=== PATIENT | male | born 1995 | race African-American/Black ===

== ENCOUNTER 2017-07-12 12:51 | Inpatient (IN) | payer OTHER ==
[~2017-07-12] VITALS: Ht 172.7 cm; Wt 84.0 kg
[2017-07-12] MEDS ORDERED: ONDANSETRON INJ 2 MG/ML 2 ML VIAL IV STA (14:24)
[2017-07-12] MEDS ORDERED: MoRPHine SULFATE 4 MG/ML 1 ML CARP\\VIAL IV STA ×2 (14:24→16:23)
--- NOTE | 2017-07-12 14:33 | EMERGENCY ROOM VISIT NOTE ---
History First contact with patient: 14:16 Chief Complaint: ABDOMINAL PAIN Stated Complaint: SEVERE ABD PAIN Nursing Triage Summary: Patient c/o of RLQ abdominal pain and nausea since last night. Patient states "I am concerned it might be my appendix. My dad's appendix almost rupture." History of Present Illness The patient is a 22 year old male who presents to the Emergency Room via private vehicle with complaints of "severe abdominal pain". The patient states that yesterday evening he developed generalized right lower quadrant abdominal pain, and nausea. He notes that he woke up and now it is persistent and severe. He states that he is tried eating food but feels very nauseous. He is concerned because his father's appendix almost ruptured, and his pain is in the same area. He notes at this time nausea, but no fevers, chills or vomiting. His bowel movements have been normal. He notes that he does have blood in the urine, but this is normal for him as he does have Alport syndrome. Review of Systems A complete 10-point Review of Systems was discussed with the patient, with pertinent positives and negatives listed in the History of Present Illness. All remaining Review of Systems questions can be considered negative unless otherwise specified. Past Medical/Surgical History Medical Problems: (1) Acute appendicitis Alport syndrome. Family History Appendectomy Social History Smoking Status: Never Smoker [employer]. Current/Historical Medications Scheduled Amphetamine-Dextroamphetamine 30MG (Adderall 30MG), 1 TAB PO BID Physical Exam Vital Signs Date Time Temp Pulse Resp B/P (MAP) Pulse Ox O2 Delivery O2 Flow Rate FiO2 07/12/17 21:30 36.8 64 14 122/70 (87) 96 Room Air 07/12/17 21:00 99 Room Air 07/12/17 21:00 37.3 62 14 135/72 99 Room Air 07/12/17 20:35 68 20 126/60 97 Room Air 07/12/17 20:25 58 20 119/63 100 Oxymask 10 07/12/17 20:15 54 20 122/64 100 Oxymask 10 07/12/17 20:08 37.5 57 20 121/76 100 Oxymask 10 07/12/17 16:50 72 16 132/75 100 Room Air 07/12/17 14:50 37.3 80 18 139/80 100 Room Air 10/4/17 12:54 36.7 70 18 119/77 100 Room Air Physical Exam VITAL SIGNS - Vital signs and nursing notes were reviewed.Stable. GENERAL -22-year-old male appearing his stated age who is in no acute distress. Communicates well with provider and answers questions appropriately. SKIN - Without rashes. No petechial rashes. HEAD - NC/AT. EYES - Sclera anicteric. EARS - No deformities of external structures noted on gross examination bilaterally. NOSE - Midline and without cyanosis. No epistaxis or purulent drainage noted. Septum midline without deviation or septal hematoma noted. MOUTH/OROPHARYNX - Without perioral cyanosis. NECK - Neck with FROM. LUNGS - Chest wall symmetric without accessory muscle use, intercostals retractions, or central cyanosis. Normal vesicular breath sounds CTA B/L. No wheezes, rales, or rhonchi appreciated. CARDIAC - RRR with S1/S2. No murmur, rubs, or gallops appreciated. ABDOMEN - Abdominal contour normal without pulsations or visible masses. BS normoactive all four quadrants. Exquisite right lower quadrant tenderness. No palpable masses, hepatosplenomegaly, or ascites noted. Medical Decision & Procedures ER Provider Diagnostic Interpretation: [~ rep ct add3]] ABD/PELVIS IV AND ORAL CONT HISTORY: 22 years-old Male RLQ abdominal pain acute right lower quadrant abdominal pain. COMPARISON: None available TECHNIQUE: Multiple axial CT images of the abdomen and pelvis were obtained following the intravenous administration of moderate 16 mL Optiray 320. Oral contrast was also used. A dose lowering technique was used consistent with the principals of ALARA. FINDINGS: The bilateral lung bases are generally clear. There is minimal bibasilar bronchial wall thickening which may reflect bronchitis. No pneumoperitoneum identified. The imaged inferior cardiac chambers are unremarkable. The liver, spleen, pancreas and adrenal glands are within normal limits. The kidneys, ureters, urinary bladder and prostate are unremarkable. Abdominal aorta is normal in course and caliber. No bulky adenopathy. Oral contrast is seen within a mildly distended distal esophagus compatible with reflux. No bowel obstruction. Appendix is fluid-filled and dilated, 1.2 cm with mucosal hyperemia, surrounding inflammatory stranding and reactive free fluid. Free fluid also tracks into the dependent pelvis. No abscess or pneumoperitoneum. Moderate degree of symmetric muscular atrophic changes are seen involving the abdominal wall, paraspinal, gluteal, psoas and iliopsoas musculature as well as the musculature about the bilateral proximal thighs. The bones appear intact. IMPRESSION: 1. Findings compatible with acute uncomplicated appendicitis. 2. Moderate degree of symmetric muscular atrophy involving the abdominal wall, paraspinal, gluteal, psoas and iliopsoas musculature as well as the musculature about the bilateral proximal thighs is nonspecific and requires clinical correlation. The above report was generated using voice recognition software. It may contain grammatical, syntax or spelling errors. Electronically signed by: Cristofer Cabral M.D. 07/12/2017 5:04 PM Dictated Date/Time: 07/12/2017 4:55 PM Laboratory Results 07/12/17 14:20 Red Blood Count 4.96, Mean Corpuscular Volume 87.3, Mean Corpuscular Hemoglobin 30.0, Mean Corpuscular Hemoglobin Concent 34.4, Mean Platelet Volume 9.5, Neutrophils (%) (Auto) 88.5, Lymphocytes (%) (Auto) 4.4, Monocytes (%) (Auto) 6.2, Eosinophils (%) (Auto) 0.6, Basophils (%) (Auto) 0.1, Neutrophils # (Auto) 14.12, Lymphocytes # (Auto) 0.70, Monocytes # (Auto) 0.98, Eosinophils # (Auto) 0.09, Basophils # (Auto) 0.01 07/12/17 14:20 Test 07/12/17 14:15 07/12/17 14:20 Urine Color ORANGE Urine Appearance CLOUDY (CLEAR) Urine pH 7.5 (4.5-7.5) Urine Specific [place] 1.023 (1.000-1.030) Urine Protein 2+ (NEG) Urine Glucose (UA) NEG (NEG) Urine Ketones 1+ (NEG) Urine Occult Blood 3+ (NEG) Urine Nitrite NEG (NEG) Urine Bilirubin NEG (NEG) Urine Urobilinogen NEG (NEG) Urine Leukocyte Esterase TRACE (NEG) Urine WBC (Auto) 5-10 /hpf (0-5) Urine RBC (Auto) >30 /hpf (0-4) Urine Hyaline Casts (Auto) 1-5 /lpf (0-5) Urine Epithelial Cells (Auto) >30 /lpf (0-5) Urine Bacteria (Auto) NEG (NEG) Urine Renal Epithelial Cells /lpf (0-5) Urine Pathogenic Casts /lpf (0) White Blood Count 15.93 K/uL (4.8-10.8) Red Blood Count 4.96 M/uL (4.7-6.1) Hemoglobin 14.9 g/dL (14.0-18.0) Hematocrit 43.3 % (42-52) Mean Corpuscular Volume 87.3 fL (80-100) Mean Corpuscular Hemoglobin 30.0 pg (25-34) Mean Corpuscular Hemoglobin Concent 34.4 g/dl (32-36) Platelet Count 237 K/uL (130-400) Mean Platelet Volume 9.5 fL (7.4-10.4) Neutrophils (%) (Auto) 88.5 % Lymphocytes (%) (Auto) 4.4 % Monocytes (%) (Auto) 6.2 % Eosinophils (%) (Auto) 0.6 % Basophils (%) (Auto) 0.1 % Neutrophils # (Auto) 14.12 K/uL (1.4-6.5) Lymphocytes # (Auto) 0.70 K/uL (1.2-3.4) Monocytes # (Auto) 0.98 K/uL (0.11-0.59) Eosinophils # (Auto) 0.09 K/uL (0-0.5) Basophils # (Auto) 0.01 K/uL (0-0.2) RDW Standard Deviation 42.1 fL (36.4-46.3) RDW Coefficient of Variation 13.2 % (11.5-14.5) Immature Granulocyte % (Auto) 0.2 % Immature Granulocyte # (Auto) 0.03 K/uL (0.00-0.02) Anion Gap 9.0 mmol/L (3-11) Est Creatinine Clear Calc Drug Dose 200.6 ml/min Estimated GFR () > 150.0 Estimated GFR (Non- 142.8 BUN/Creatinine Ratio 21.7 (10-20) Calcium Level 8.6 mg/dl (8.5-10.1) Total Bilirubin 0.3 mg/dl (0.2-1) Aspartate Amino Transf (AST/SGOT) 26 U/L (15-37) Alanine Aminotransferase (ALT/SGPT) 48 U/L (12-78) Alkaline Phosphatase 74 U/L (45-117) Total Protein 7.2 gm/dl (6.4-8.2) Albumin 3.8 gm/dl (3.4-5.0) Globulin 3.4 gm/dl (2.5-4.0) Albumin/Globulin Ratio 1.1 (0.9-2) Lipase 79 U/L (73-393) Medications Administered Medications (Trade) Dose Ordered Sig/Brandee Route Start Time Stop Time Status Last Admin Dose Admin Morphine Sulfate (MoRPHine SULFATE INJ) 4 mg NOW STAT IV 07/12/17 14:24 07/12/17 14:25 DC 07/12/17 14:44 4 MG Ondansetron HCl (Zofran Inj) 4 mg NOW STAT IV 07/12/17 14:24 07/12/17 14:25 DC 07/12/17 14:44 4 MG Sodium Chloride 1,000 ml @ 999 mls/hr Q1H1M STAT IV 07/12/17 14:43 07/12/17 15:43 DC 07/12/17 14:45 999 MLS/HR Morphine Sulfate (MoRPHine SULFATE INJ) 4 mg NOW STAT IV 07/12/17 16:23 07/12/17 16:24 DC 07/12/17 16:35 4 MG Bupivacaine HCl (Marcaine 0.5% MPF Inj) 30 ml STK-MED ONCE .ROUTE 07/12/17 17:55 07/12/17 17:56 DC 07/12/17 19:50 10 ML Cefoxitin Sodium 2000 mg/Dextrose 60 ml @ 120 mls/hr 1830 IV 07/12/17 18:30 07/12/17 18:59 DC 07/12/17 18:15 120 MLS/HR Fentanyl Citrate (Fentanyl Inj) 50 mcg Q5M PRN IV 07/12/17 18:30 07/12/17 23:30 07/12/17 20:31 50 MCG Medical Decision Patient was seen and evaluated as above. He presents to us today with severe right lower quadrant abdominal pain. His examination is concerning for that of appendicitis. Decision was made to obtain a CT scan of the abdomen and pelvis with IV and oral contrast. There is leukocytosis of near 16,000. No anemia. Metabolic panel was unremarkable for concerning process. No evidence of kidney or liver failure. Although the urine does show blood, I suspect this is likely secondary to his underlying Alport syndrome. Patient notes this is unchanged from previous. Case was discussed with the on-call general surgeon, Dr. Garcia. He will evaluate the patient. Patient will be taken to surgery for his appendicitis. Please refer to further documentation regarding his stay. Patient was educated upon the muscle atrophy identified on CT, and is to follow- up with his family doctor regarding such. He was given a printed copy of the scan. He was given morphine 2 for his pain and Zofran for nausea. Evaluation treatment this patient the following differential diagnoses were entertained: Appendicitis, mesenteric adenitis, epiploic appendicitis, diverticulitis, among others. Impression Primary Impression: Acute appendicitis Departure Information Dispostion Admitted as an inpatient Condition GOOD Patient Instructions My [facility]
[2017-07-12 14:36] LABS: BASO % 0.1 %; BASO ABS # 0.01 K/uL (0-0.2); COMPLETE YES; EOS % 0.6 %; HEMATOCRIT 43.3 % (42-52); IG% 0.2 %; LYMPH % 4.4 %; MEAN CELL VOLUME 87.3 fL (80-100); MEAN CORPUSCULAR HGB CONC 34.4 g/dl (32-36); MEAN PLATELET VOLUME 9.5 fL (7.4-10.4); MONO % 6.2 %; NEUT % 88.5 %; PLATELET COUNT 237 K/uL (130-400); RED BLOOD COUNT 4.96 M/uL (4.7-6.1); WHITE BLOOD COUNT 15.93 K/uL (4.8-10.8)
[2017-07-12] MEDS ORDERED: SODIUM CHLORIDE 0.9% 1000ML 1,000 ML IV STA (14:43)
[2017-07-12] MEDS ORDERED: OPTIRAY 320 IV PRN (14:45)
[2017-07-12] MEDS ORDERED: AMPH30TA2 PO (14:52)
[2017-07-12 14:55] LABS: ALT/SGPT 48 U/L (12-78); AST/SGOT 26 U/L (15-37); BLOOD UREA NITROGEN 13 mg/dl (7-18); BUN/CREATININE RATIO 21.7 (10-20); CALCIUM 8.6 mg/dl (8.5-10.1); CARBON DIOXIDE 28 mmol/L (21-32); CHLORIDE 104 mmol/L (98-107); CREATININE 0.62 mg/dl (0.60-1.40); GLUCOSE 98 mg/dl (70-99); POTASSIUM 3.5 mmol/L (3.5-5.1); SODIUM 141 mmol/L (136-145)
[2017-07-12 14:56] LABS: URINE APPEARANCE CLOUDY (CLEAR); URINE BILIRUBIN NEG (NEG); URINE COLOR ORANGE; URINE EPITHELIAL CELL AUTO >30 /lpf (0-5); URINE NITRITE NEG (NEG); URINE PH 7.5 (4.5-7.5); URINE SPECIFIC GRAVITY 1.023 (1.000-1.030); UROBILINOGEN NEG (NEG); ZZUR CULT IF INDIC CLEAN CATCH NO
[2017-07-12 14:58] LABS: ALB/GLOB RATIO 1.1 (0.9-2); ALKALINE PHOSPHATASE 74 U/L (45-117)
[2017-07-12 15:16] LABS: MANUAL MICROSCOPIC REQUIRED? NO; REVIEW REQ? YES; SULFASALICYLIC ACID POS (NEG)
--- NOTE | 2017-07-12 17:06 | DIAGNOSTIC IMAGING REPORT ---
ABD/PELVIS IV AND ORAL CONT HISTORY: 22 years-old Male RLQ abdominal pain acute right lower quadrant abdominal pain. COMPARISON: None available TECHNIQUE: Multiple axial CT images of the abdomen and pelvis were obtained following the intravenous administration of moderate 16 mL Optiray 320. Oral contrast was also used. A dose lowering technique was used consistent with the principals of NIYA. FINDINGS: The bilateral lung bases are generally clear. There is minimal bibasilar bronchial wall thickening which may reflect bronchitis. No pneumoperitoneum identified. The imaged inferior cardiac chambers are unremarkable. The liver, spleen, pancreas and adrenal glands are within normal limits. The kidneys, ureters, urinary bladder and prostate are unremarkable. Abdominal aorta is normal in course and caliber. No bulky adenopathy. Oral contrast is seen within a mildly distended distal esophagus compatible with reflux. No bowel obstruction. Appendix is fluid-filled and dilated, 1.2 cm with mucosal hyperemia, surrounding inflammatory stranding and reactive free fluid. Free fluid also tracks into the dependent pelvis. No abscess or pneumoperitoneum. Moderate degree of symmetric muscular atrophic changes are seen involving the abdominal wall, paraspinal, gluteal, psoas and iliopsoas musculature as well as the musculature about the bilateral proximal thighs. The bones appear intact. IMPRESSION: 1. Findings compatible with acute uncomplicated appendicitis. 2. Moderate degree of symmetric muscular atrophy involving the abdominal wall, paraspinal, gluteal, psoas and iliopsoas musculature as well as the musculature about the bilateral proximal thighs is nonspecific and requires clinical correlation. The above report was generated using voice recognition software. It may contain grammatical, syntax or spelling errors. Electronically signed by: Cristofer Cabral M.D. 07/12/2017 5:04 PM Dictated Date/Time: 07/12/2017 4:55 PM
[2017-07-12] MEDS ORDERED: CEFOXITIN 2000MG/60 ML D5W IV STA (17:46)
--- NOTE | 2017-07-12 17:54 | History and Physical ---
History & Physical Date Jul 12, 2017. Chief Complaint abd pain History of Present Illness The patient is a 22 year old male with complaints of abd pain , persistent w/u with CT showing evidence of acute appendicitis- no abscess elevated WBC Additional History Other: Alport syndrome, micro hematuria Allergies Coded Allergies: No Known Allergies (Unverified , 07/12/17) Home Medications Scheduled Amphetamine-Dextroamphetamine 30MG (Adderall 30MG), 1 TAB PO BID Physical Examination Skin: warm/dry Eyes: sclerae normal Head: atraumatic Neck: supple Respiratory/Chest: no respiratory distress Cardiovascular: regular rate, rhythm Abdomen / GI: + pertinent finding (abd- soft, Rt lower abd tenderness) Extremities: normal inspection Neurologic/Psych: alert Diagnosis acute appendicitis Plan of Treatment 07/12/17- for laparoscopic appendectomy, possible open operation discussed risks of bleeding, infection, bowel/ bladder injury
[2017-07-12] MEDS ORDERED: BUPIVACAINE 0.5 % 5 MG/1 ML MPF 30ML VIAL ONE (17:55)
[2017-07-12] MEDS ORDERED: FENTANYL CITRATE INJ 50 MCG/1 ML 2 ML VIAL ONE ×5 (18:16→20:24)
[2017-07-12] MEDS ORDERED: MIDAZOLAM HCL 1 MG/ML 2ML VIAL ONE (18:16)
[2017-07-12] MEDS ORDERED: HYDROmorphone INJ 1 MG/ML SYR IV PRN (18:30)
[2017-07-12] MEDS ORDERED: ATROPINE SULFATE 0.1 MG/ML 5ML SYR IV PRN (18:30)
[2017-07-12] MEDS ORDERED: CEFOXITIN IV 2,000 MG in DEXTROSE 5% 50ML 50 ML IV SCH (18:30)
[2017-07-12] MEDS ORDERED: LABETALOL HCL IV 5 MG/ML 20ML IV PRN (18:30)
[2017-07-12] MEDS ORDERED: MEPERIDINE HCL 25 MG/ML CARP IV PRN (18:30)
[2017-07-12] MEDS ORDERED: EpHEDrine SULFATE INJ 50 MG/ML AMP IV PRN (18:30)
[2017-07-12] MEDS ORDERED: ONDANSETRON INJ 2 MG/ML 2 ML VIAL IV PRN ×2 (18:30→20:15)
[2017-07-12] MEDS ORDERED: ONDANSETRON INJ 2 MG/ML 2 ML VIAL ONE (19:07)
[2017-07-12] MEDS ORDERED: PROPOFOL IV EMULSION 10 MG/ML 20 ML VIAL IV ONE (19:07)
[2017-07-12] MEDS ORDERED: LIDOCAINE HCL 2% 2 ML VIAL (20MG/ML) ONE (19:07)
[2017-07-12] MEDS ORDERED: SUCCINYLCHOLINE 100MG/5ML SYR IV ONE (19:07)
[2017-07-12] MEDS ORDERED: DEXAMETHASONE SOD INJ 4 MG/ML VIAL ONE (19:07)
[2017-07-12] MEDS ORDERED: ROCURONIUM BROMID 50MG/5ML SYR ONE (19:07)
--- NOTE | 2017-07-12 20:05 | [facility] Operative Report ---
Operative Report Operative Date Jul 12, 2017. Pre-Operative Diagnosis acute appendicitis Post-Operative Diagnosis Same, with chronic adhesions Procedure(s) Performed Laparoscopic Appendectomy of internally ruptured appendix Surgeon Dr Garcia Bmet Surgeon(s) none Estimated Blood Loss 20cc Findings gangrenous appendicitis with severe chronic adhesions Specimens a. appendix Drains # 15 Rd ÓSCAR to bulb Anesthesia gen Complication(s) None Disposition Recovery Room / PACU I attest to the content of the Intraoperative Record and any orders documented therein. Any exceptions are noted below.
[2017-07-12] MEDS ORDERED: PROMETHAZINE HCL INJ 25 MG in SODIUM CHLORIDE 0.9% 50ML 50 ML IV PRN (20:15)
[2017-07-12] MEDS ORDERED: PROMETHAZINE HCL INJ 12.5 MG in SODIUM CHLORIDE 0.9% 50ML 50 ML IV PRN (20:15)
[2017-07-12] MEDS: FENTANYL CITRATE INJ 50 MCG/1 ML 2 ML VIAL IV PRN ×2 (20:26→20:31)
--- NOTE | 2017-07-12 20:47 | Anesthesiology Progress Note ---
Anesthesia Post Op Note Date & Time Jul 12, 2017 at 20:47 Vital Signs Pain Intensity: 5 Vital Signs Past 12 Hours Date Time Temp Pulse Resp B/P (MAP) Pulse Ox O2 Delivery O2 Flow Rate FiO2 07/12/17 20:35 68 20 126/60 97 Room Air 07/12/17 20:25 58 20 119/63 100 Oxymask 10 07/12/17 20:15 54 20 122/64 100 Oxymask 10 07/12/17 20:08 37.5 57 20 121/76 100 Oxymask 10 07/12/17 16:50 72 16 132/75 100 Room Air 07/12/17 14:50 37.3 80 18 139/80 100 Room Air 07/12/17 12:54 36.7 70 18 119/77 100 Room Air Notes Mental Status: alert / awake / arousable, participated in evaluation Pt Amnestic to Procedure: Yes Nausea / Vomiting: adequately controlled Pain: adequately controlled Airway Patency, RR, SpO2: stable & adequate BP & HR: stable & adequate Hydration State: stable & adequate Anesthetic Complications: no major complications apparent
[2017-07-12 21:00] VITALS: BP 135/72; PULSE 62; TEMP 37.3; O2SAT 99; Ht 172.7 cm; Wt 84.0 kg
[2017-07-12] MEDS ORDERED: PIPERACILL/TAZOBAC IV 3.375 GM in DEXTROSE 5% 100ML 100 ML IV SCH (21:00)
[2017-07-12 21:30] VITALS: BP 122/70; PULSE 64; TEMP 36.8; O2SAT 96
[2017-07-12 22:00] VITALS: BP 125/65; PULSE 75; TEMP 37.2; O2SAT 98
[2017-07-12] MEDS ORDERED: PIPERACILL/TAZOBAC CONSULT ACTIVE PRN (22:00)
[2017-07-12] MEDS ORDERED: PIPERACILL/TAZOBAC IV 3.375 GM in DEXTROSE 5% 100ML IV ONE (22:00)
[2017-07-12] MEDS: LACTATED RINGER'S 1000ML 1,000 ML IV SCH (22:03)
[2017-07-12 23:02] VITALS: BP 128/70; PULSE 87; TEMP 37.9; O2SAT 98
[2017-07-13] VITALS (8 sets, daily range): BP systolic 119–136; BP diastolic 69–84; PULSE 65–88; TEMP 36.7–37.2; O2SAT 97–99
[2017-07-13] MEDS: MoRPHine SULFATE 4 MG/ML 1 ML CARP\\VIAL IV PRN (00:03)
--- NOTE | 2017-07-13 00:54 | OPERATIVE REPORT ---
DATE OF OPERATION: 07/12/2017 NAME OF OPERATION: Laparoscopic appendectomy. PREOPERATIVE DIAGNOSIS: Acute appendicitis. POSTOPERATIVE DIAGNOSIS: Same with severe chronic adhesions and gangrenous changes. STAFF SURGEON: Dr. Garcia. ANESTHESIA: General. PROCEDURE: The patient was brought in the operating room and placed on the operating table in a supine position. His abdomen was prepped and draped in the usual fashion. Tiwari catheter was placed, 0.5% plain Marcaine was used to anesthetize the skin and subcutaneous tissue above the umbilicus and the incision, carrying dissection down to the fascia, placing a Veress needle, producing pneumoperitoneum. An 11-mm port was placed at this level and then the camera was passed. A 5-mm port was placed suprapubically and then a 12-mm port placed in the left lower quadrant. On inspection and from the CT scan, the patient's appendix was somewhat retrocecal and behind significant lateral adhesions overlying the appendix. These were very dense, they were taken down and then upon mobilizing the appendix, which was somewhat difficult, it showed severe chronic inflammation and also acute inflammation with gangrenous changes. There was some purulent fluid from the appendix, which was aspirated and also irrigated. Gradually, the appendix was mobilized. The base was identified, it was transected using the Endo-IVORY. The mesoappendix was transected using the Endo-IVORY and then clips were placed on some additional chronic adhesive tissue. The appendix was placed in an Endobag and removed through the left lower quadrant site. At this point, the pelvis and the right side of the abdomen, the right lower quadrant and perihepatic area were irrigated with a significant amount of saline solution. There was no significant bleeding. A 15 round James-Hernandes drain was placed through the 5-mm suprapubic port site, placed into the right lower quadrant and down into the pelvis, secured using 3-0 nylon suture. At this point, all ports were removed. The 12-mm site and 11-mm site were closed using 0 Vicryl for the fascia, then the skin at the umbilicus closed using subcuticular 4-0 Monocryl as well as the left lower quadrant. Dermabond was placed in the umbilical site. Steri-Strips in the left lower quadrant, dressings applied and patient transferred to recovery room in a stable condition. The drain was placed to a bulb. I attest to the content of the Intraoperative Record and any orders documented therein. Any exception s are noted below.
[2017-07-13] MEDS: PIPERACILL/TAZOBAC IV 3.375 GM in DEXTROSE 5% 100ML IV SCH ×3 (02:06→17:53)
[2017-07-13 05:41] LABS: HEMATOCRIT 36.7 % (42-52); MEAN CELL VOLUME 86.6 fL (80-100); MEAN CORPUSCULAR HEMOGLOBIN 31.4 pg (25-34); MEAN CORPUSCULAR HGB CONC 36.2 g/dl (32-36); MEAN PLATELET VOLUME 9.2 fL (7.4-10.4); PLATELET COUNT 206 K/uL (130-400); RED BLOOD COUNT 4.24 M/uL (4.7-6.1)
[2017-07-13] MEDS: MoRPHine SULFATE 2 MG/ML CARP IV PRN ×3 (05:43→22:35)
--- NOTE | 2017-07-13 06:03 | Surgery Progress Note ---
Surgery Progress Note Date of Service Jul 13, 2017. Subjective Post OP Day: 1 some pain- using IV meds, minimal ambulation Objective Vital Signs: Date Time Temp Pulse Resp B/P (MAP) Pulse Ox O2 Delivery O2 Flow Rate FiO2 07/13/17 04:06 37.2 88 16 125/69 (87) 97 Room Air 07/13/17 00:00 37.2 75 16 122/78 (93) 98 Room Air 07/13/17 00:00 Room Air 07/12/17 23:02 37.9 87 18 128/70 (89) 98 Room Air 07/12/17 22:05 Room Air 07/12/17 22:00 37.2 75 18 125/65 (85) 98 Room Air 07/12/17 21:30 36.8 64 14 122/70 (87) 96 Room Air 07/12/17 21:00 99 Room Air 07/12/17 21:00 37.3 62 14 135/72 99 Room Air 07/12/17 20:35 68 20 126/60 97 Room Air 07/12/17 20:25 58 20 119/63 100 Oxymask 10 07/12/17 20:15 54 20 122/64 100 Oxymask 10 07/12/17 20:08 37.5 57 20 121/76 100 Oxymask 10 07/12/17 16:50 72 16 132/75 100 Room Air 07/12/17 14:50 37.3 80 18 139/80 100 Room Air 07/12/17 12:54 36.7 70 18 119/77 100 Room Air General Appearance: no apparent distress Respiratory/Chest: no respiratory distress Abdomen: soft Incision(s): drainage (has ÓSCAR drain- expected output) Laboratory Results: Results Past 24 Hours Test 07/12/17 14:15 07/12/17 14:20 07/13/17 05:29 Range/Units Urine Color ORANGE Urine Appearance CLOUDY CLEAR Urine pH 7.5 4.5-7.5 Urine Specific [place] 1.023 1.000-1.030 Urine Protein 2+ NEG Urine Glucose (UA) NEG NEG Urine Ketones 1+ NEG Urine Occult Blood 3+ NEG Urine Nitrite NEG NEG Urine Bilirubin NEG NEG Urine Urobilinogen NEG NEG Urine Leukocyte Esterase TRACE NEG Urine WBC (Auto) 5-10 0-5 /hpf Urine RBC (Auto) >30 0-4 /hpf Urine Hyaline Casts (Auto) 1-5 0-5 /lpf Urine Epithelial Cells (Auto) >30 0-5 /lpf Urine Bacteria (Auto) NEG NEG Urine Renal Epithelial Cells 0-5 /lpf Urine Pathogenic Casts 0 /lpf White Blood Count 15.93 19.20 4.8-10.8 K/uL Red Blood Count 4.96 4.24 4.7-6.1 M/uL Hemoglobin 14.9 13.3 14.0-18.0 g/dL Hematocrit 43.3 36.7 42-52 % Mean Corpuscular Volume 87.3 86.6 80-100 fL Mean Corpuscular Hemoglobin 30.0 31.4 25-34 pg Mean Corpuscular Hemoglobin Concent 34.4 36.2 32-36 g/dl Platelet Count 237 206 130-400 K/uL Mean Platelet Volume 9.5 9.2 7.4-10.4 fL Neutrophils (%) (Auto) 88.5 % Lymphocytes (%) (Auto) 4.4 % Monocytes (%) (Auto) 6.2 % Eosinophils (%) (Auto) 0.6 % Basophils (%) (Auto) 0.1 % Neutrophils # (Auto) 14.12 1.4-6.5 K/uL Lymphocytes # (Auto) 0.70 1.2-3.4 K/uL Monocytes # (Auto) 0.98 0.11-0.59 K/uL Eosinophils # (Auto) 0.09 0-0.5 K/uL Basophils # (Auto) 0.01 0-0.2 K/uL RDW Standard Deviation 42.1 42.1 36.4-46.3 fL RDW Coefficient of Variation 13.2 13.3 11.5-14.5 % Immature Granulocyte % (Auto) 0.2 % Immature Granulocyte # (Auto) 0.03 0.00-0.02 K/uL Sodium Level 141 136-145 mmol/L Potassium Level 3.5 3.5-5.1 mmol/L Chloride Level 104 98-107 mmol/L Carbon Dioxide Level 28 21-32 mmol/L Anion Gap 9.0 3-11 mmol/L Blood Urea Nitrogen 13 7-18 mg/dl Creatinine 0.62 0.60-1.40 mg/dl Est Creatinine Clear Calc Drug Dose 200.6 ml/min Estimated GFR () > 150.0 Estimated GFR (Non- 142.8 BUN/Creatinine Ratio 21.7 10-20 Random Glucose 98 70-99 mg/dl Calcium Level 8.6 8.5-10.1 mg/dl Total Bilirubin 0.3 0.2-1 mg/dl Aspartate Amino Transf (AST/SGOT) 26 15-37 U/L Alanine Aminotransferase (ALT/SGPT) 48 12-78 U/L Alkaline Phosphatase 74 45-117 U/L Total Protein 7.2 6.4-8.2 gm/dl Albumin 3.8 3.4-5.0 gm/dl Globulin 3.4 2.5-4.0 gm/dl Albumin/Globulin Ratio 1.1 0.9-2 Lipase 79 73-393 U/L Assessment & Plan 07/13/17- s/p lap appendectomy- severe acute/chronic appendicitis drain in place- leave until Monday- cont IV atbx, mobilize plan d/c tomorrow
[2017-07-13 06:04] LABS: BLOOD UREA NITROGEN 9 mg/dl (7-18); BUN/CREATININE RATIO 14.6 (10-20); CALCIUM 8.1 mg/dl (8.5-10.1); CARBON DIOXIDE 25 mmol/L (21-32); CHLORIDE 103 mmol/L (98-107); CREATININE 0.65 mg/dl (0.60-1.40); GLUCOSE 130 mg/dl (70-99); POTASSIUM 3.7 mmol/L (3.5-5.1); SODIUM 137 mmol/L (136-145)
[2017-07-13] MEDS: HYDROCODONE/ACETAMOPHEN 5/325MG TAB PO PRN ×2 (07:19→14:37)
[2017-07-13] MEDS: AMPHETAMINE ASP/SULF/DEXTRAMPH 10 MG TAB PO SCH ×2 (09:00→20:53)
[2017-07-13] MEDS: DOCUSATE SODIUM/SENNA 50/8.6MG TAB PO SCH ×2 (09:09→20:53)
[2017-07-13] MEDS: LACTATED RINGER'S 1000ML 1,000 ML IV SCH ×2 (09:25→20:50)
[2017-07-13] MEDS ORDERED: HYDR-5688 PO (12:35)
[2017-07-13] MEDS ORDERED: AMOX875T PO (12:35)
--- NOTE | 2017-07-13 12:37 | Discharge Instructions ---
Discharge Instructions Date of Service Jul 13, 2017. Admission Reason for Admission: Acute Appendicitis Discharge Discharge Diagnosis / Problem: gangrenous appendix Discharge Goals Goal(s): Decrease discomfort, Improve function, Improve disease control Activity Recommendations Activity Limitations: as noted below Lifting Limitations: no more than 25 pounds Exercise/Sports Limitations: until after follow-up appointment May Resume Sexual Activity: when tolerated Shower/Bathe: tomorrow Driving or Machine Use: resume 3 days after discharge SPECIAL CARE INSTRUCTIONS: * Cover incisions and change daily for comfort/drainage. * Empty drain 2-3 times per day and record. * May use ibuprofen for pain as tolerated. * Expect some swelling and bruising. Call your doctor if: * Temperature above 101 degrees * Pain not relieved by pain medicine ordered * There is increased drainage or redness from any incision * You have any unanswered questions or concerns [phone]. FOLLOW UP VISIT: If not already scheduled, please call the office for a follow-up visit. for Mon or Mon- 07/17 or 07/18- drain removal OFFICE PHONE NUMBER: Dr. Garcia Office . Current Hospital Diet Patient's current hospital diet: Regular Diet Discharge Diet Recommended Diet: Regular Diet Procedures Procedures Performed: Laparoscopic Appendectomy of internally ruptured appendix Pending Studies Studies pending at discharge: no Medical Emergencies . Who to Call and When: Medical Emergencies: If at any time you feel your situation is an emergency, please call 911 immediately. . Non-Emergent Contact Non-Emergency issues call your: Primary Care Provider, Surgeon . "Provider Documentation" section prepared by Tima Garcia. . VTE Core Measure Inpt VTE Proph given/why not?: SCD's
[2017-07-13] MEDS ORDERED: NURSING VERBAL MED ORDER ONE (20:30)
[2017-07-14] MEDS: PIPERACILL/TAZOBAC IV 3.375 GM in DEXTROSE 5% 100ML IV SCH ×3 (00:41→17:54)
[2017-07-14] MEDS: MoRPHine SULFATE 2 MG/ML CARP IV PRN (00:56)
[2017-07-14] MEDS: MoRPHine SULFATE 4 MG/ML 1 ML CARP\\VIAL IV PRN ×2 (04:49→13:17)
[2017-07-14] MEDS: LACTATED RINGER'S 1000ML 1,000 ML IV SCH (04:50)
--- NOTE | 2017-07-14 06:18 | Surgery Progress Note ---
Surgery Progress Note Date of Service Jul 14, 2017. Subjective emesis last pm, bloating vitals stable, drain- serosang [id number] last pm Objective Vital Signs: Date Time Temp Pulse Resp B/P (MAP) Pulse Ox O2 Delivery O2 Flow Rate FiO2 07/14/17 00:30 Room Air 07/13/17 23:55 36.7 65 14 136/84 (101) 98 Room Air 07/13/17 20:14 37.0 67 18 133/84 (100) 97 Room Air 07/13/17 19:25 37.2 07/13/17 16:30 Room Air 07/13/17 15:29 37.0 85 18 127/75 (92) 97 Room Air 07/13/17 11:25 36.9 79 20 120/70 (87) 99 Room Air 07/13/17 07:57 Room Air 07/13/17 07:29 37.0 86 16 119/69 (86) 97 Room Air General Appearance: no apparent distress Respiratory/Chest: no respiratory distress Abdomen: + pertinent finding (decreased bs, mild distention, min tenderness, expected drainage- not blood) Laboratory Results: Results Past 24 Hours Test 07/14/17 05:56 Range/Units Assessment & Plan 07/14/17- likely has mild ileus- not unexpected with severity of appendicitis IV fluids, check labs, atbx, ambulation, try some Reglan- h/o of gastroparesis- will need 1-2 more days in hospital 07/13/17- s/p lap appendectomy- severe acute/chronic appendicitis drain in place- leave until Monday- cont IV atbx, mobilize plan d/c tomorrow 07/13/17- s/p lap appendectomy- severe acute/chronic appendicitis drain in place- leave until Monday- cont IV atbx, mobilize plan d/c tomorrow
[2017-07-14] MEDS: METOCLOPRAMIDE HCL INJ 5 MG/ML 2 ML VIAL IV. SCH ×3 (06:33→17:54)
[2017-07-14 06:37] LABS: HEMATOCRIT 37.5 % (42-52); MEAN CELL VOLUME 86.6 fL (80-100); MEAN CORPUSCULAR HEMOGLOBIN 29.3 pg (25-34); MEAN CORPUSCULAR HGB CONC 33.9 g/dl (32-36); MEAN PLATELET VOLUME 9.9 fL (7.4-10.4); PLATELET COUNT 234 K/uL (130-400); RED BLOOD COUNT 4.33 M/uL (4.7-6.1); WHITE BLOOD COUNT 12.44 K/uL (4.8-10.8)
[2017-07-14 07:18] LABS: BLOOD UREA NITROGEN 7 mg/dl (7-18); BUN/CREATININE RATIO 13.9 (10-20); CALCIUM 8.6 mg/dl (8.5-10.1); CARBON DIOXIDE 27 mmol/L (21-32); CHLORIDE 101 mmol/L (98-107); CREATININE 0.49 mg/dl (0.60-1.40); GLUCOSE 72 mg/dl (70-99); MAGNESIUM 1.8 mg/dl (1.8-2.4); PHOSPHORUS 2.8 mg/dl (2.5-4.9); POTASSIUM 3.1 mmol/L (3.5-5.1); SODIUM 137 mmol/L (136-145)
[2017-07-14] MEDS ORDERED: D5W AND 1/2NSS + 20MEQ KCL 1,000 ML IV SCH (07:45)
[2017-07-14 07:51] VITALS: BP 137/79; PULSE 79; TEMP 37.3; O2SAT 98
[2017-07-14] MEDS: POTASSIUM CHLR 10MEQ / WTR IV SCH ×4 (08:04→11:00)
[2017-07-14] MEDS: AMPHETAMINE ASP/SULF/DEXTRAMPH 10 MG TAB PO SCH ×2 (09:00→21:00)
--- NOTE | 2017-07-14 10:31 | Medical Consult ---
Consultation Date of Consultation: Jul 14, 2017. Attending Physician: Tima Garcia M.D. Reason for Consultation: Medical management History of Present Illness Patient is a 22 y/o male, with PMHx of Alport syndrome, s/p appendectomy on 07/[address] Garcia. Hospitalist team was consulted for medical management. Patient resting in bed, no signs of acute distress. No flatus/BM postop. Pain is well controlled. +nausea and emesis- PRN antiemetic medications ordered by surgery. Patient denies any fever, chills, sweats, lightheadedness, dizziness, vision changes, CP, palpitations, edema, SOB, wheezing, cough, diarrhea, urinary symptoms, melena, numbness/tingling, weakness, muscle/joint pain, anxiety/ depression, active bleeding, or new skin discoloration/changes. Past Medical/Surgical History Past Medical History: Alport syndrome Surgical History: Appendectomy Family History Father: Appendicitis Social History Smoking Status: Never Smoker Occupation Status: [employer] student Allergies Coded Allergies: Soy Milk (Verified Allergy, Mild, GI SYMPTOMS, 07/13/17) Home Medications Reported Home Medications Medications Dose Route/Sig Max Daily Dose Days Date Category Dose Instructions Augmentin 875-125 mg (Amoxicillin & Pot Clavulanate) 1 Tab Tab 1 Tab PO BID 07/13/17 Rx [place] 5MG/325MG (Acetaminophen/Hydrocodone Bitart) Tab 1-2 Tablet PO Q 6 HRS PRN 07/13/17 Rx PRN PAIN Adderall 30MG (Amphetamine-Dextroamphetamine 30MG) 1 Tab Tab 1 Tab PO BID 30 07/12/17 Reported Current Inpatient Medications Current Inpatient Medications Medications (Trade) Dose Ordered Sig/Brandee Route Start Time Stop Time Status Last Admin Dose Admin Ioversol (Optiray 320) 100 ml UD PRN IV 07/12/17 14:45 07/16/17 14:44 Acetaminophen/ Hydrocodone Bitart ([place] 5/325 Tab) 1 tab Q4 PRN PO 07/12/17 20:15 07/26/17 20:14 Acetaminophen/ Hydrocodone Bitart ([place] 5/325 Tab) 2 tab Q4 PRN PO 07/12/17 20:15 07/26/17 20:14 07/13/17 14:37 2 TAB Morphine Sulfate (MoRPHine SULFATE INJ) 2 mg Q4H PRN IV 07/12/17 20:15 07/26/17 20:14 07/14/17 00:56 2 MG Morphine Sulfate (MoRPHine SULFATE INJ) 4 mg Q4H PRN IV 07/12/17 20:15 07/26/17 20:14 07/14/17 04:49 4 MG Promethazine HCl 25 mg/Sodium Chloride 51 ml @ 204 mls/hr Q6H PRN IV 07/12/17 20:15 08/11/17 20:14 Ondansetron HCl (Zofran Inj) 4 mg Q6H PRN IV 07/12/17 20:15 08/11/17 20:14 Promethazine HCl 12.5 mg/Sodium Chloride 50.5 ml @ 202 mls/hr Q6H PRN IV 07/12/17 20:15 08/11/17 20:14 Piperacillin Sod/ Tazobactam Sod 3.375 gm/Dextrose 115 ml @ 28.75 mls/ hr Q8H IV 07/13/17 02:00 07/23/17 01:59 07/14/17 00:41 28.75 MLS/HR Piperacillin Sod/ Tazobactam Sod (Consult) 1 ea UD PRN N/A 07/12/17 22:00 08/11/17 21:59 Amphetamine Aspartate/ Amphetam Sulf (Amphetamine Aspartate/Amph Sulf/Dextramphet) 30 mg BID PO 07/13/17 09:00 08/12/17 08:59 Senna/Docusate Sodium (Senokot S Tab) 1 tab BID PO 07/13/17 09:00 08/12/17 08:59 07/13/17 09:09 1 TAB Metoclopramide HCl (Reglan Inj) 10 mg Q6H IV. 07/14/17 06:00 08/13/17 05:59 07/14/17 06:33 10 MG Potassium Chloride 10 meq/ Prmx 100 ml @ 100 mls/hr Q1H IV 07/14/17 08:00 07/14/17 11:59 07/14/17 08:04 100 MLS/HR Potassium Chloride/Dextrose/ Sod Cl 1,000 ml @ 125 mls/hr Q8H IV 07/14/17 07:45 08/13/17 07:44 07/14/17 07:58 125 MLS/HR Physical Exam Date Time Temp Pulse Resp B/P (MAP) Pulse Ox O2 Delivery O2 Flow Rate FiO2 07/14/17 07:51 37.3 79 16 137/79 (98) 98 Room Air 07/14/17 00:30 Room Air 07/13/17 23:55 36.7 65 14 136/84 (101) 98 Room Air 07/13/17 20:14 37.0 67 18 133/84 (100) 97 Room Air 07/13/17 19:25 37.2 07/13/17 16:30 Room Air 07/13/17 15:29 37.0 85 18 127/75 (92) 97 Room Air 07/13/17 11:25 36.9 79 20 120/70 (87) 99 Room Air General Appearance: no apparent distress Head: normocephalic, atraumatic Eyes: normal inspection, PERRL ENT: hearing grossly normal Neck: supple Respiratory/Chest: lungs clear, no respiratory distress, no accessory muscle use Cardiovascular: regular rate, rhythm Abdomen/GI: normal bowel sounds, + tenderness (around incision sites ), + distended, + pertinent finding (incision sites w/ wound dressing C/D/I, ÓSCAR drain w/ serosanguinous drainage ) Extremities/Musculoskelatal: no calf tenderness, no pedal edema Neurologic/Psych: alert, normal mood/affect, oriented x 3 Skin: normal color, warm/dry, no rash Laboratory Results Last 24 Hours Test 07/14/17 05:56 White Blood Count 12.44 K/uL Red Blood Count 4.33 M/uL Hemoglobin 12.7 g/dL Hematocrit 37.5 % Mean Corpuscular Volume 86.6 fL Mean Corpuscular Hemoglobin 29.3 pg Mean Corpuscular Hemoglobin Concent 33.9 g/dl RDW Standard Deviation 42.3 fL RDW Coefficient of Variation 13.1 % Platelet Count 234 K/uL Mean Platelet Volume 9.9 fL Sodium Level 137 mmol/L Potassium Level 3.1 mmol/L Chloride Level 101 mmol/L Carbon Dioxide Level 27 mmol/L Anion Gap 9.0 mmol/L Blood Urea Nitrogen 7 mg/dl Creatinine 0.49 mg/dl Est Creatinine Clear Calc Drug Dose 253.8 ml/min Estimated GFR () > 150.0 Estimated GFR (Non- > 150.0 BUN/Creatinine Ratio 13.9 Random Glucose 72 mg/dl Calcium Level 8.6 mg/dl Phosphorus Level 2.8 mg/dl Magnesium Level 1.8 mg/dl Assessment & Plan Patient is a 22 y/o male, with PMHx of Al[place] syndrome, s/p appendectomy on 07/[address] Garcia. Hospitalist team was consulted for medical management. s/p appendectomy by Dr. Garcia on 07/13: - Pain management, IVF, IV antibiotics, PT/OT, and DVT prophylaxis as per surgical team - Advance diet as per surgery - Postop CBC and PRP -- Leukocytosis- IMPROVING -- H&H- STABLE -- Hypokalemia- replaced w/ IV 10 mEq KCL supplement x4 doses + IVF w/ K supplement DVT prophylaxis: As per surgical team Code Status: LEVEL I, FULL Dispo: Discharge as per primary team- likely in the next 1-2 days Thank you for this consultation. We will continue to follow.
[2017-07-14] MEDS: DOCUSATE SODIUM/SENNA 50/8.6MG TAB PO SCH ×2 (10:34→22:23)
[2017-07-14] MEDS ORDERED: NURSING VERBAL MED ORDER ONE ×2 (12:00)
[2017-07-14] MEDS ORDERED: POTASSIUM CHLORIDE 20 MEQ TABCR PO ONE (12:15)
[2017-07-14] MEDS ORDERED: KETOROLAC TROMETHAMINE 30 MG/ML VIAL IV. SCH (13:45)
[2017-07-14 15:07] VITALS: BP 138/74; PULSE 84; TEMP 37.5; O2SAT 96
[2017-07-14] MEDS: HYDROCODONE/ACETAMOPHEN 5/325MG TAB PO PRN (22:23)
[2017-07-14 23:18] VITALS: BP 126/71; PULSE 88; TEMP 36.9; O2SAT 95
[2017-07-15] MEDS: D5NSS + 20MEQ KCL 1,000 ML IV SCH ×3 (00:33→15:44)
[2017-07-15] MEDS: METOCLOPRAMIDE HCL INJ 5 MG/ML 2 ML VIAL IV. SCH ×4 (00:33→18:00)
[2017-07-15] MEDS: PIPERACILL/TAZOBAC IV 3.375 GM in DEXTROSE 5% 100ML IV SCH ×3 (03:02→18:03)
[2017-07-15 06:52] VITALS: BP 129/82; PULSE 83; TEMP 36.9; O2SAT 94
[2017-07-15] MEDS: DOCUSATE SODIUM/SENNA 50/8.6MG TAB PO SCH ×2 (07:26→21:00)
[2017-07-15] MEDS: HYDROCODONE/ACETAMOPHEN 5/325MG TAB PO PRN ×2 (07:27→21:21)
[2017-07-15] MEDS: AMPHETAMINE ASP/SULF/DEXTRAMPH 10 MG TAB PO SCH ×2 (07:28→21:00)
[2017-07-15 08:14] LABS: HEMATOCRIT 36.7 % (42-52); MEAN CORPUSCULAR HEMOGLOBIN 30.1 pg (25-34); MEAN CORPUSCULAR HGB CONC 34.6 g/dl (32-36); MEAN PLATELET VOLUME 9.5 fL (7.4-10.4); PLATELET COUNT 239 K/uL (130-400); RED BLOOD COUNT 4.22 M/uL (4.7-6.1); WHITE BLOOD COUNT 9.83 K/uL (4.8-10.8)
[2017-07-15 09:06] LABS: BLOOD UREA NITROGEN 5 mg/dl (7-18); BUN/CREATININE RATIO 12.3 (10-20); CALCIUM 8.3 mg/dl (8.5-10.1); CARBON DIOXIDE 27 mmol/L (21-32); CHLORIDE 104 mmol/L (98-107); CREATININE 0.44 mg/dl (0.60-1.40); GLUCOSE 98 mg/dl (70-99); POTASSIUM 3.6 mmol/L (3.5-5.1); SODIUM 138 mmol/L (136-145)
--- NOTE | 2017-07-15 10:00 | Surgery Progress Note ---
Surgery Progress Note Date of Service Jul 15, 2017. Subjective Patient examined at bedside this morning. Afebrile, vitals stable overnight on room air, no acute events. Sleeping comfortably on arrival this morning. States pain has improved compared to yesterday. Denies N/V. Passing flatus. Voiding without difficulty. Objective Vital Signs: Date Time Temp Pulse Resp B/P (MAP) Pulse Ox O2 Delivery O2 Flow Rate FiO2 07/15/17 07:15 Room Air 07/15/17 06:52 36.9 83 16 129/82 (98) 94 Room Air 07/15/17 00:20 Room Air 07/14/17 23:18 36.9 88 16 126/71 (89) 95 Room Air 07/14/17 15:45 Room Air 07/14/17 15:07 37.5 84 18 138/74 (95) 96 Room Air General Appearance: WD/WN, no apparent distress Head: normocephalic Neck: supple Respiratory/Chest: lungs clear, normal breath sounds, no respiratory distress Cardiovascular: regular rate, rhythm Abdomen: normal bowel sounds, non distended (no rebound / guarding), soft, + tenderness (mild RLQ tenderness to palpation) Incision(s): clean, dry, intact Extremities: normal range of motion Laboratory Results: Results Past 24 Hours Test 07/15/17 07:32 Range/Units White Blood Count 9.83 4.8-10.8 K/uL Red Blood Count 4.22 4.7-6.1 M/uL Hemoglobin 12.7 14.0-18.0 g/dL Hematocrit 36.7 42-52 % Mean Corpuscular Volume 87.0 80-100 fL Mean Corpuscular Hemoglobin 30.1 25-34 pg Mean Corpuscular Hemoglobin Concent 34.6 32-36 g/dl RDW Standard Deviation 42.0 36.4-46.3 fL RDW Coefficient of Variation 13.0 11.5-14.5 % Platelet Count 239 130-400 K/uL Mean Platelet Volume 9.5 7.4-10.4 fL Sodium Level 138 136-145 mmol/L Potassium Level 3.6 3.5-5.1 mmol/L Chloride Level 104 98-107 mmol/L Carbon Dioxide Level 27 21-32 mmol/L Anion Gap 7.0 3-11 mmol/L Blood Urea Nitrogen 5 7-18 mg/dl Creatinine 0.44 0.60-1.40 mg/dl Est Creatinine Clear Calc Drug Dose 282.7 ml/min Estimated GFR () > 150.0 Estimated GFR (Non- > 150.0 BUN/Creatinine Ratio 12.3 10-20 Random Glucose 98 70-99 mg/dl Calcium Level 8.3 8.5-10.1 mg/dl Assessment & Plan Carl Stiles is a 22 year old man admitted with gangrenous appendicitis who is now POD 3 s/p laparoscopic appendectomy. -Pain control as needed -Continue IVF hydration, trend labs -Continue IV zosyn for now -Drain to bulb suction, drain care / monitor outputs (will keep in place upon discharge) -Clear liquids today -Encourage out of bed / ambulation Yuridia Collins MD 07/15/17
[2017-07-15 15:20] VITALS: BP 146/82; PULSE 75; TEMP 36.7; O2SAT 99
--- NOTE | 2017-07-15 19:40 | Progress Note ---
Subjective Date of Service: Jul 15, 2017. Subjective Pt evaluation today including: conversation w/ patient, conversation w/ family , physical exam, chart review, lab review, review of inpatient medication list feeling good ate liquids well and so hungry has some diarrhea - relates to being in IV fluids, IV abx, and liquids only no f/c/s no significant belly pain feeling much better overall Review of Systems all other ROS otherwise negative except for as above Objective Vital Signs Date Time Temp Pulse Resp B/P (MAP) Pulse Ox O2 Delivery O2 Flow Rate FiO2 07/15/17 15:45 Room Air 07/15/17 15:20 36.7 75 14 146/82 (103) 99 Room Air 07/15/17 07:15 Room Air 07/15/17 06:52 36.9 83 16 129/82 (98) 94 Room Air 07/15/17 00:20 Room Air 07/14/17 23:18 36.9 88 16 126/71 (89) 95 Room Air Physical Exam General Appearance: no apparent distress Eyes: EOMI ENT: hearing grossly normal Neck: trachea midline Respiratory/Chest: no respiratory distress, no accessory muscle use Abdomen: non tender (minimally tender R sided, nondistended no guarding no rebound no masses ), soft Extremities: normal range of motion Neurologic/Psychiatric: corrections officer II-XII nml as tested, alert, normal mood/affect Skin: normal color, warm/dry Laboratory Results Last 24 Hours Test 07/15/17 07:32 White Blood Count 9.83 K/uL Red Blood Count 4.22 M/uL Hemoglobin 12.7 g/dL Hematocrit 36.7 % Mean Corpuscular Volume 87.0 fL Mean Corpuscular Hemoglobin 30.1 pg Mean Corpuscular Hemoglobin Concent 34.6 g/dl RDW Standard Deviation 42.0 fL RDW Coefficient of Variation 13.0 % Platelet Count 239 K/uL Mean Platelet Volume 9.5 fL Sodium Level 138 mmol/L Potassium Level 3.6 mmol/L Chloride Level 104 mmol/L Carbon Dioxide Level 27 mmol/L Anion Gap 7.0 mmol/L Blood Urea Nitrogen 5 mg/dl Creatinine 0.44 mg/dl Est Creatinine Clear Calc Drug Dose 282.7 ml/min Estimated GFR () > 150.0 Estimated GFR (Non- > 150.0 BUN/Creatinine Ratio 12.3 Random Glucose 98 mg/dl Calcium Level 8.3 mg/dl Assessment and Plan s/p appendectomy by Dr. Garcia on 07/13 for gangrenous appendicitis w leukocytosis: - Pain management, IVF, IV antibiotics, PT/OT, and DVT prophylaxis as per surgical team - Advance diet as per surgery but since he's doing well having BM and very hungry, as well as has a reassuring abdominal exam, will ask surgery if OK to advance to regular low fiber tonight - labs reassuring, follow periodically at this point diarrhea -likely as he suspects from fluids and antibiotics, but since inpatient and on IV abx - obligated to check stool for Cdiff DVT prophylaxis: As per surgical team Code Status: LEVEL I, FULL looks improving
[2017-07-15 23:12] VITALS: BP 138/74; PULSE 85; TEMP 36.4; O2SAT 99
[2017-07-16] MEDS: D5NSS + 20MEQ KCL 1,000 ML IV SCH ×2 (00:41→08:43)
[2017-07-16] MEDS ORDERED: METRONIDAZOLE 500 MG TAB PO STA (01:32)
[2017-07-16] MEDS: PIPERACILL/TAZOBAC IV 3.375 GM in DEXTROSE 5% 100ML IV SCH ×2 (01:59→10:05)
[2017-07-16] MEDS: METOCLOPRAMIDE HCL INJ 5 MG/ML 2 ML VIAL IV. SCH ×3 (06:00→10:05)
[2017-07-16 07:18] VITALS: BP 134/82; PULSE 71; TEMP 36.7; O2SAT 97
[2017-07-16] MEDS ORDERED: METRONIDAZOLE 500 MG TAB PO SCH (08:00)
[2017-07-16] MEDS: AMPHETAMINE ASP/SULF/DEXTRAMPH 10 MG TAB PO SCH (08:42)
[2017-07-16] MEDS: DOCUSATE SODIUM/SENNA 50/8.6MG TAB PO SCH (08:42)
--- NOTE | 2017-07-16 10:02 | Surgery Progress Note ---
Surgery Progress Note Date of Service Jul 16, 2017. Subjective Patient examined at bedside this morning. Afebrile, vitals stable overnight on room air, no acute events. Denies pain this morning, feels well. Had several loose BMs yesterday - tested for C diff PCR, found to be positive; started on PO flagyl. Tolerating regular diet without N/V. Ambulating and voiding without difficulty. Minimal serosanguinous ouptut from drain. Wants to go home. Objective Vital Signs: Date Time Temp Pulse Resp B/P (MAP) Pulse Ox O2 Delivery O2 Flow Rate FiO2 07/16/17 07:18 36.7 71 16 134/82 (99) 97 Room Air 07/16/17 00:25 Room Air 07/15/17 23:12 36.4 85 18 138/74 (95) 99 Room Air 07/15/17 15:45 Room Air 07/15/17 15:20 36.7 75 14 146/82 (103) 99 Room Air Physical Exam: ÓSCAR drainage (serosanguinous, minimal) General Appearance: WD/WN, no apparent distress Head: normocephalic Neck: supple Respiratory/Chest: lungs clear, normal breath sounds, no respiratory distress Cardiovascular: regular rate, rhythm Abdomen: normal bowel sounds, non tender, non distended, soft (no rebound / guarding) Incision(s): clean, dry, intact Extremities: normal range of motion Laboratory Results: Microbiology Results 07/15/17 C.difficile Toxin B Gene (PCR) - Final, Complete Positive for C. difficile toxin B gene Assessment & Plan Carl Stiles is a 22 year old man admitted with gangrenous appendicitis who is now POD 4 s/p laparoscopic appendectomy. Found to be C diff positive. -Regular diet as tolerated -Pain control as needed -Continue IVF hydration, trend labs -Transition zosyn to Augmentin for discharge, will also continue PO flagyl on discharge -Drain to bulb suction, drain care / monitor outputs (will keep in place upon discharge) -Doing well, will discharge to home today with drain - follow up with Dr. Garcia in next few days to evaluate for drain removal. Continue PO Augmentin and flagyl. Yuridia Collins MD 07/16/17
[2017-07-16] MEDS ORDERED: MTR500 PO (10:04)
[2017-07-16 10:08] VITALS: BP 134/82; PULSE 71; TEMP 36.7; O2SAT 97
--- NOTE | 2017-07-18 09:21 | DISCHARGE SUMMARY ---
PRIMARY DISCHARGE DIAGNOSES: 1. Acute gangrenous appendicitis. 2. C. diff colitis. PROCEDURE PERFORMED: Laparoscopic appendectomy. HOSPITAL COURSE: The patient is a 22-year-old male who presented to the Emergency Department with approximately 24 hours of abdominal pain localizing to the right lower quadrant. White count was 15,000. CT was consistent with acute appendicitis. He was taken to the operating room that evening for laparoscopic appendectomy. He did have gangrenous appendicitis. A ÓSCAR drain was placed. He was transferred to the surgical floor. IV Zosyn was continued. The next morning his white count peaked at 19,000, but by postoperative day 2 was decreased to 12,000. He remained afebrile. He had some nausea and vomiting which improved by postoperative day 3. He had multiple loose bowel movements which prompted testing for C. diff which came back as positive. He was started on oral Flagyl. By postoperative day 4, his diarrhea had improved. He was tolerating diet and oral analgesics. He was stable for discharge home. DISCHARGE INSTRUCTIONS: Discharge home with the drain. Follow up in the office in 1-2 days for removal of the drain. DISCHARGE MEDICATIONS: Augmentin 875 mg p.o. b.i.d. x7, Flagyl 500 mg p.o. t.i.d. x2 weeks and [place] 1-2 tablets every 6 hours as needed. Continue Adderall 30 mg b.i.d.
== END 2017-07-16 11:58 | disposition home or self-care (01) | DRG 339 ==
LOC: C.EDB 12:52 → C.MSW 20:10 → ENRESERV 20:40
PROVIDERS: ADMIT Surgery; ATTEND Surgery
PROC: 0DTJ4ZZ Resection of Appendix, Percutaneous Endoscopic Approach (ICD-10-PCS; principal; 2017-07-12 17:49)
DX: K35.2 Acute appendicitis with generalized peritonitis (principal); A04.72 Enterocolitis due to Clostridium difficile, not specified as recurrent; K56.7 Ileus, unspecified; Q87.81 Alport syndrome; K38.8 Other specified diseases of appendix; E87.6 Hypokalemia; R11.2 Nausea with vomiting, unspecified; K31.84 Gastroparesis; Z72.0 Tobacco use; Z79.899 Other long term (current) drug therapy